=== PATIENT | female | born 1955 | race Caucasian/White ===

== ENCOUNTER → 2025-01-30 08:07 | Outpatient (CLI) | payer MEDICARE, OTHER, SELFPAY ==
--- NOTE | 2025-01-30 08:12 | DI.ECHO.S_ITS ---
[facility] : : [address] : : [place] : : [id number] : : Phone: [phone] Echocardiogram Report + + :Name: EARNEST WOOTEN Study Date: 01/30/2025 Height: 68.5 in: :[facility] ReadingLocation: Weight: 230 lb : : Gender: Female BSA: 2.2 m2 : :: 1955 Age: 69 yrs BP: 126/72 mmHg: :Reason For Study: DYSPNEA ON EXERTION : :Ordering Physician: Carrie DURANTformed By: Salma Alvarez : :Referring: DICKSON DURANT : + + Interpretation Summary Borderline LV dilation. Normal LV systolic function. LVEF is 60 to 65%. Preserved RV size and function. Mildly dilated left atrium. No significant valvular pathology is noted. Other findings as below. When compared to TTE dated 01/22/2024, no clinically significant changes are noted. Procedure: A two-dimensional transthoracic echocardiogram with color flow and Doppler was performed. The study quality was technically adequate. Comparison is made with the echocardiogram of 01/22/2024. The patient was in sinus bradycardia with heart rates between 58-62 bpm during the exam. Left Ventricle: The left ventricle is borderline dilated. The ejection fraction is estimated to be 60-65%. Left ventricular systolic function is normal. Normal diastolic function. Right Ventricle: The right ventricle is normal in size and function. Atria: The left atrium is mildly dilated. Right atrial size is normal. There is no Doppler evidence for an interatrial shunt. Mitral Valve: The mitral valve leaflets appear to open well. There is mild mitral regurgitation. Aortic Valve: The aortic valve is trileaflet. There is mild aortic valve sclerosis. There is no aortic valve stenosis. No aortic regurgitation is present. Tricuspid Valve: The tricuspid valve leaflets are thin and pliable. There is mild tricuspid regurgitation. The right ventricular systolic pressure is estimated to be at least 27 mmHg based on an estimated right atrial pressure of 3 mm Hg. Pulmonic Valve: The pulmonic valve leaflets are thin and pliable; valve motion is normal. There is no pulmonic valvular regurgitation. Great Vessels: The aortic root is normal size. The dimensions of the ascending aorta are normal. The IVC is of normal diameter and collapses greater than 50% with a sniff. This suggests a low right atrial pressure of 3 mm Hg. Pericardium/ Pleura There is no pericardial effusion. There is no pleural effusion. MMode/2D Measurements & Calculations LVIDd: 5.1 cm LVOT diam: 2.1 cm LVIDs: 3.8 cm Ao root diam: 3.3 cm FS: 25.6 % asc Aorta Diam: 3.5 cm EPSS: 0.84 cm Ao Arch Diam (Prox Trans): 3.0 cm IVSd: 0.84 cm LVPWd: 0.79 cm LV roberts. diameter/BSA (cm/m^2): 2.3 LV sys. diameter/BSA (cm/m^2): 1.7 LA A2 area: 21.7 cm2 RA long axis: 5.2 cm LA A4 area: 17.7 cm2 RA area: 15.6 cm2 LA length (vol): 5.7 cm RA vol: 40.0 ml LA vol: 57.2 ml RA : 18.3 ml/m2 LA vol index: 26.2 ml/m2 IVC diam: 1.4 cm RVD1 (basal): 3.7 cm RVD2 (mid): 3.4 cm TAPSE: 2.5 cm Doppler Measurements & Calculations Ao V2 max: 177.2 cm/sec LVOT Max Tirso: 125.5 cm/sec Ao V2 mean: 121.4 cm/sec LV V1 max P.4 mmHg Ao max P.4 mmHg LV V1 VTI: 25.2 cm Ao mean P.7 mmHg JOSE(I,D): 2.4 cm2 Ao V2 VTI: 37.2 cm JOSE(V,D): 2.5 cm2 sev ratio: 0.68 JOSE indexed to BSA (cm^2/m^2): 1.1 MV E max tirso: 72.2 cm/sec TR max tirso: 242.3 cm/sec MV A max tirso: 55.6 cm/sec TR max P.5 mmHg MV E/A: 1.3 PA V2 max: 108.4 cm/sec Med Peak E' Tirso: 9.5 cm/sec PA V2 mean: 74.9 cm/sec E/E' med: 7.6 PA mean P.5 mmHg Lat Peak E' Tirso: 9.2 cm/sec PA pr(Accel): 34.9 mmHg E/E' lat: 7.9 E/e' average: 7.8 MV dec time: 0.19 sec SV(SERGIO): 88.1 ml Reading Physician:03:13 PM
== END ==
LOC: ECHO 08:10
PROVIDERS: Family Provider Family Medicine; PCP Student in an Organized Health Care Education/Training Program; Referring Provider Internal Medicine Cardiovascular Disease; Visit Provider Internal Medicine Cardiovascular Disease
DX: I08.3 Combined rheumatic disorders of mitral, aortic and tricuspid valves (principal); R00.1 Bradycardia, unspecified; R06.09 Other forms of dyspnea; I49.5 Sick sinus syndrome
CPT/HCPCS: 93306